=== PATIENT | female | born 2000 | race Caucasian/White ===

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

== ENCOUNTER 2022-12-09 12:22 | Emergency (ER) | payer MEDICAID, SELFPAY ==
[2022-12-09 14:03] VITALS: BP 134/63; PULSE 81; RESP 14; TEMP 36.4; O2SAT 99; BMI 21.7
[2022-12-09 14:40] LABS: MANUAL DIFF FLAG NO
[2022-12-09 14:42] LABS: Basophils Percent Auto 0.4 % (0-2); Eosinophils Absolute Auto 0.1 X10*3/uL (0.0-0.4); Eosinophils Percent Auto 0.8 % (0-4); Hemoglobin 11.6 g/dl (12.0-16.0); Imm Gran Abs Auto 0.03 X10*3/uL (0.00-0.03); Imm Gran Pct Auto 0.4 % (0.0-0.4); Lymphocytes Absolute Auto 1.5 X10*3/uL (1.2-4.9); Lymphocytes Percent Auto 20.3 % (20-40); Mean Corpuscular HGB Conc 34.1 g/dl (31.0-35.0); Mean Corpuscular Hemoglobin 30.6 pg (27.0-33.0); Mean Corpuscular Volume 89.7 fL (80.0-98.0); Mean Platelet Volume 9.1 fL (9.4-12.3); Monocytes Absolute Auto 0.7 X10*3/uL (0.1-1.2); Monocytes Percent Auto 9.7 % (2-11); Neutrophils Absolute Auto 4.9 x10*3/uL (2.0-8.3); Neutrophils Percent Auto 68.4 % (45-73); Platelet Count 222 X10*3/uL (160-400); Red Blood Count 3.79 X10*6/uL (4.20-5.50); Red Cell Distribution Width 11.8 % (11.0-16.0); White Blood Count 7.2 X10*3/uL (4.8-10.8)
[2022-12-09 14:43] LABS: Appearance Urine Clear; Color Urine Yellow; Glucose Urine UA Negative (Negative); Leukocyte Esterase Urine Negative (Negative); Nitrite Urine Negative (Negative); PH 7.5 (5.0-9.0); UMIC TRIGGER UACC YES; Urine Blood Moderate (2+) (Negative); Urine Ketones Negative (Negative); Urine Protein Negative (Neg-Trace)
[2022-12-09 14:57] LABS: Anion Gap 11 (12-20); Blood Urea Nitrogen 6 mg/dL (9-16); Calcium 8.8 mg/dL (8.4-10.2); Carbon Dioxide 23 mmol/L (22-29); Chloride 110 mmol/L (96-108); Creatinine Clr Calc Pharmacy 129.2; Estimated Glomerular Filt Rate > 60; Glucose Random 94 mg/dL (60-115); Potassium 4.1 mmol/L (3.3-5.1); Sodium 140 mmol/L (135-145)
[2022-12-09 14:58] LABS: Bacteria Urine None Seen (None Seen); Hyaline Casts Urine 0-2 /LPF (0-2); RBC Urine 0-2 /HPF (0-2); Squamous Epithelial Cell Urine 0-2 /HPF (0-2); WBC Urine 0-5 /HPF (0-5)
--- NOTE | 2022-12-09 17:00 | ED_ITS ---
HPI - Female Genitourinary General Chief complaint: Vaginal Bleeding Stated complaint: Abd pain Time Seen by Provider: 12/09/22 17:00 Source: patient Mode of arrival: ambulatory Limitations: no limitations History of Present Illness HPI Narrative: 22 yo female presents to the ER for evaluation of irregular vaginal bleeding since June and intermittent rectal bleeding associated with constipation. 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 She started OCPs 2 weeks ago. She reports using 2 super plus tampons per day. She has intermittent suprapubic cramping associated with the bleeding. She also had right sided abdominal cramping and constipation. She has been taking lactulose. She has some blood on the toilet paper when she wipes. No chest pain, SOB, dizziness, fever, chills, urinary symptoms. MD elicited complaint: vaginal bleeding Onset (ago): month(s) Location of symptoms: vaginal Severity: severe Female Urogenital Radiation: Non-Radiating Quality of pain: sharp Consistency: intermittent Vaginal discharge: none Vaginal bleeding: heavy Exacerbating factors: none Relieving factors: none Associated symptoms: abdominal pain Treatment prior to arrival: none Sexual activity: Yes Patient : No Related Data Previous Rx's Medication Instructions Recorded ibuprofen 400 mg tablet 400 mg PO Q6H PRN pain #20 tabs 09/29/20 omeprazole 20 mg capsule,delayed 20 mg PO DAILY #14 caps 11/12/20 release fluconazole 150 mg tablet 150 mg PO DAILY #1 tab 12/15/20 (Diflucan) metronidazole 500 mg tablet 500 mg PO BID #14 tabs 12/15/20 nitrofurantoin 100 mg PO Q12H 5 days #10 caps 01/05/21 monohydrate/macrocrystals 100 mg capsule (Macrobid) sulfacetamide sodium 10 % eye drops 2 drp ophthalmic-Right Q3H 5 days 01/15/21 #15 mL albuterol sulfate 90 mcg/actuation 2 puff inhalation Q4-6H PRN 07/06/21 aerosol inhaler shortness of breath or wheezing #6.7 grams ondansetron HCl 4 mg tablet 4 mg PO Q8H PRN nausea and 07/06/21 (Zofran) vomiting #9 tabs amoxicillin 875 mg-potassium 1 tab PO Q12H 10 days #20 tabs 07/09/21 clavulanate 125 mg tablet (Augmentin) ondansetron HCl 4 mg tablet 4 mg PO Q8H PRN nausea and 09/12/21 (Zofran) vomiting #10 tabs ibuprofen 400 mg tablet 400 mg PO Q8H PRN pain #20 tabs 09/21/21 azithromycin 250 mg tablet See Rx Instructions PO .COMPLEX #6 09/27/21 tabs ibuprofen 600 mg tablet 600 mg PO Q8H PRN pain #30 tabs 10/05/21 docusate sodium 100 mg capsule 100 mg PO BID #30 caps 12/09/22 (Colace) polyethylene glycol 3350 17 17 g PO DAILY #119 grams 12/09/22 gram/dose oral powder (Miralax) Allergies Allergy/AdvReac Type Severity Reaction Status Date / Time No Known Allergies Allergy Verified 10/29/21 09:43 [No Known Allergies*] Review of Systems Review of Systems: Yes all other systems are reviewed and are negative [facility] Past Medical History Medical History Asthma COVID-19 Social History Social History (Updated 10/29/21 @ 09:50 by Nick Fournier) Alcohol intake: never Patient Tobacco Use Status: Never used Tobacco Advance Directives: No Advance Directives Information Provided: No Current occupational status: employed 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 Oriented X3. No acute distress. Eyes: Pupils equal, round and reactive to light. ENT: Pharynx normal. Neck: Normal inspection. Neck supple. CVS: Normal heart rate and rhythm. Pulses normal. Respiratory: No respiratory distress. Breath sounds normal. Abdomen: Soft and nontender. +BS x4 Pelvic: normal external genitalia. Moderate amount of dark blood in the vaginal vault, no active bleeding from the cervical os. no cervical or vaginal lesions. Skin: Skin warm and dry. Normal skin color. Normal skin turgor. No rashes. Extremities: No lower extremity edema. Neuro: Oriented X 3. No motor deficit. No sensory deficit. Course Course Course Narrative: 22 yo female presenting with irregular vaginal bleeding since June 2022 along with intermittent rectal bleeding assocaited with constipation. Labs show stable normocytic anemia. No active bleeding on exam. She reports history of an unremarkable pelvic U/S in the past. Rectal bleeding most likely associated with hemorrhoids, none palpated on exam. At this time she is stable for d/c home with bowel regimen and ongoing outpatient [facility] follow up. patient will continue OCPs. all questions were answered. Medical Decision Making Differential Diagnosis Differential Diagnoses: The differential diagnosis associated with the presentation includes dysfunctional uterine bleeding, menorrhagia, menometrorrhagia, hemorrhoids, diverticulosis, constipation, less likely ovarian torsion, TOA, ectopic , PID Lab Data MDM Lab Attestation statement: I reviewed the patient's lab results. Stable normocytic anemia, normal platelets 12/09/22 14:36 12/09/22 14:37 Labs: Lab Results 12/09/22 12/09/22 12/09/22 Range/Units 14:33 14:33 14:36 WBC 7.2 (4.8-10.8) X10*3/uL RBC 3.79 L (4.20-5.50) X10*6/uL Hgb 11.6 L (12.0-16.0) g/dl Hct 34.0 L (37.0-47.0) % MCV 89.7 (80.0-98.0) fL MCH 30.6 (27.0-33.0) pg MCHC 34.1 (31.0-35.0) g/dl RDW 11.8 (11.0-16.0) % Plt Count 222 (160-400) X10*3/uL MPV 9.1 L (9.4-12.3) fL Immature Gran % (Auto) 0.4 (0.0-0.4) % Neut % (Auto) 68.4 (45-73) % Lymph % (Auto) 20.3 (20-40) % [place] % (Auto) 9.7 (2-11) % Eos % (Auto) 0.8 (0-4) % Baso % (Auto) 0.4 (0-2) % Lymph # (Auto) 1.5 (1.2-4.9) X10*3/uL [place] # (Auto) 0.7 (0.1-1.2) X10*3/uL Eos # (Auto) 0.1 (0.0-0.4) X10*3/uL Baso # (Auto) 0.0 (0.0-0.2) X10*3/uL Abs Immat Gran (auto) 0.03 (0.00-0.03) X10*3/uL Absolute Neuts (auto) 4.9 (2.0-8.3) x10*3/uL Absolute Nucleated RBC 0.000 (0.0-0.012) X10*3/uL Nucleated RBC % (auto) 0.0 (0.0-0.2) /100WBC Sodium (135-145) mmol/L Potassium (3.3-5.1) mmol/L Chloride (96-108) mmol/L Carbon Dioxide (22-29) mmol/L Anion Gap (12-20) BUN (9-16) mg/dL Creatinine (0.5-1.4) mg/dL Estim Creat Clear Calc Estimated GFR Random Glucose (60-115) mg/dL Calcium (8.4-10.2) mg/dL Urine Color Yellow Urine Appearance Clear Urine pH 7.5 (5.0-9.0) Ur Specific [place] 1.010 (1.005-1.025) Urine Protein Negative (Neg-Trace) mg/dL Urine Glucose (UA) Negative (Negative) mg/dL Urine Ketones Negative (Negative) mg/dL Urine Blood Moderate (2+) H (Negative) Urine Nitrite Negative (Negative) Ur Leukocyte Esterase Negative (Negative) Urine RBC 0-2 (0-2) /HPF Urine WBC 0-5 (0-5) /HPF Ur Squamous Epith Cells 0-2 (0-2) /HPF Urine Bacteria None Seen (None Seen) Hyaline Casts 0-2 (0-2) /LPF Urine Test NEGATIVE (NEGATIVE) 12/09/22 Range/Units 14:37 WBC (4.8-10.8) X10*3/uL RBC (4.20-5.50) X10*6/uL Hgb (12.0-16.0) g/dl Hct (37.0-47.0) % MCV (80.0-98.0) fL MCH (27.0-33.0) pg MCHC (31.0-35.0) g/dl RDW (11.0-16.0) % Plt Count (160-400) X10*3/uL MPV (9.4-12.3) fL Immature Gran % (Auto) (0.0-0.4) % Neut % (Auto) (45-73) % Lymph % (Auto) (20-40) % [place] % (Auto) (2-11) % Eos % (Auto) (0-4) % Baso % (Auto) (0-2) % Lymph # (Auto) (1.2-4.9) X10*3/uL [place] # (Auto) (0.1-1.2) X10*3/uL Eos # (Auto) (0.0-0.4) X10*3/uL Baso # (Auto) (0.0-0.2) X10*3/uL Abs Immat Gran (auto) (0.00-0.03) X10*3/uL Absolute Neuts (auto) (2.0-8.3) x10*3/uL Absolute Nucleated RBC (0.0-0.012) X10*3/uL Nucleated RBC % (auto) (0.0-0.2) /100WBC Sodium 140 (135-145) mmol/L Potassium 4.1 (3.3-5.1) mmol/L Chloride 110 H (96-108) mmol/L Carbon Dioxide 23 (22-29) mmol/L Anion Gap 11 L (12-20) BUN 6 L (9-16) mg/dL Creatinine 0.65 (0.5-1.4) mg/dL Estim Creat Clear Calc 129.2 Estimated GFR > 60 Random Glucose 94 (60-115) mg/dL Calcium 8.8 (8.4-10.2) mg/dL Urine Color Urine Appearance Urine pH (5.0-9.0) Ur Specific [place] (1.005-1.025) Urine Protein (Neg-Trace) mg/dL Urine Glucose (UA) (Negative) mg/dL Urine Ketones (Negative) mg/dL Urine Blood (Negative) Urine Nitrite (Negative) Ur Leukocyte Esterase (Negative) Urine RBC (0-2) /HPF Urine WBC (0-5) /HPF Ur Squamous Epith Cells (0-2) /HPF Urine Bacteria (None Seen) Hyaline Casts (0-2) /LPF Urine Test (NEGATIVE) External Record Review External record reviewed: Outpatient record, Prior outpatient labs and Prior outpatient radiology Tests considered The following testing was considered but not selected: Pelvic ultrasound considered, not performed, no evidence ovarian torsion, kishore gent need to get done in the emergency department today. History of a pelvic ultrasound done in the past. Critical Care Time Critical Care Time Critical Care Time: No Discharge Plan Discharge Clinical Impression: Dysfunctional uterine bleeding, Constipation Patient Disposition: Home, Self-Care Instructions: Dysfunctional Uterine Bleeding (ED), Constipation (ED) Additional Instructions: Your labs showed stable blood counts. Your urine test was negative for infection and . Recommend starting the prescribed laxative and stool softner medication. Recommend continuing your control pills. Follow up with your speedometer mechanic Rest, drink plenty of fluids. If you develop new or worsening symptoms call 911 or come back to the ER for further evaluation. Prescriptions: New polyethylene glycol 3350 [Miralax] 17 gram/dose powder 17 g PO DAILY Qty: 119 0RF docusate sodium [Colace] 100 mg capsule 100 mg PO BID Qty: 30 0RF No Action metronidazole 500 mg tablet 500 mg PO BID Qty: 14 0RF fluconazole [Diflucan] 150 mg tablet 150 mg PO DAILY Qty: 1 0RF Rx Instructions: Take this in 72 hours from 1st dose received in the ER sulfacetamide sodium 10 % drops 2 drp ophthalmic-Right Q3H 5 Days Qty: 15 0RF ondansetron HCl [Zofran] 4 mg tablet 4 mg PO Q8H PRN (Reason: nausea and vomiting) Qty: 9 0RF albuterol sulfate 90 mcg/actuation HFA aerosol inhaler 2 puff inhalation Q4-6H PRN (Reason: shortness of breath or wheezing) Qty: 6.7 1RF amoxicillin-pot clavulanate [Augmentin] 875-125 mg tablet 1 tab PO Q12H 10 Days Qty: 20 0RF ibuprofen 400 mg tablet 400 mg PO Q6H PRN (Reason: pain) Qty: 20 0RF omeprazole 20 mg capsule,delayed release(DR/EC) 20 mg PO DAILY Qty: 14 0RF nitrofurantoin monohyd/m-cryst [Macrobid] 100 mg capsule 100 mg PO Q12H 5 Days Qty: 10 0RF Rx Instructions: must administer with a meal/food ondansetron HCl [Zofran] 4 mg tablet 4 mg PO Q8H PRN (Reason: nausea and vomiting) Qty: 10 0RF ibuprofen 600 mg tablet 600 mg PO Q8H PRN (Reason: pain) Qty: 30 0RF ibuprofen 400 mg tablet 400 mg PO Q8H PRN (Reason: pain) Qty: 20 0RF azithromycin 250 mg tablet See Rx Instructions .ROUTE .COMPLEX Qty: 6 0RF Rx Instructions: For 250 mg dose pack: take 500 mg today (day 1), then 250 mg for 4 days (days 2-5) Stand Alone Forms: Work/School Release Interventions: ED Discharge Assessment Last Done: 12/09/22 18:13 Discharge Date/Time: 12/09/22 18:13
[2022-12-09 17:46] LABS: UPreg QC Valid YES; Urine Pregnancy NEGATIVE (NEGATIVE)
== END 2022-12-09 18:13 | disposition home or self-care (01) ==
PROVIDERS: Physician Assistant; Emergency Provider Emergency Medicine Emergency Medical Services
DX: N93.8 Other specified abnormal uterine and vaginal bleeding (principal); K59.00 Constipation, unspecified
CPT/HCPCS: 36415; 80048; 81001; 81025; 85025; 99282; 99283

== ENCOUNTER 2023-04-10 21:45 | Emergency (ER) | payer OTHER, SELFPAY ==
--- NOTE | ~2023-04-10 | XR_ITS ---
EXAMINATION: XR ABDOMEN KUB CLINICAL INDICATION: Constipation COMPARISON: 06/11/2021 TECHNIQUE: AP view of the abdomen. FINDINGS: Bowel gas pattern is nonobstructive. Moderate volume of stool is noted. No suspicious calcifications are seen. Included lung bases are well-aerated. No acute osseous findings are seen. XR/XR KUB IMPRESSION: Moderate volume of stool. Nonobstructive bowel gas pattern.
[2023-04-10 22:13] VITALS: BP 110/65; PULSE 65; RESP 16; TEMP 36.9; O2SAT 100; BMI 20.7
[2023-04-11 00:20] VITALS: BP 116/69; PULSE 99; RESP 16; TEMP 36.9; O2SAT 99
--- NOTE | 2023-04-11 01:09 | ED_ITS ---
HPI - Abdominal Pain General Chief Complaint: Abdominal Pain Stated Complaint: constipated, bleeding now Time Seen by Provider: 04/11/23 00:33 Source: patient Mode of arrival: ambulatory Limitations: no limitations History of Present Illness HPI narrative: 22-year-old female presents with constipation. Symptoms started 2-3 weeks ago. She has been taking MiraLax and Colace without relief. She is passing flatus. She has passed small amount of flu. She has mild abdominal pain. There is no clear relieving or exacerbating features. She has had some nausea but no vomiting. Related Data Previous Rx's Medication Instructions Recorded ibuprofen 400 mg tablet 400 mg PO Q6H PRN pain #20 tabs 09/29/20 omeprazole 20 mg capsule,delayed 20 mg PO DAILY #14 caps 11/12/20 release fluconazole 150 mg tablet 150 mg PO DAILY #1 tab 12/15/20 (Diflucan) metronidazole 500 mg tablet 500 mg PO BID #14 tabs 12/15/20 nitrofurantoin 100 mg PO Q12H 5 days #10 caps 01/05/21 monohydrate/macrocrystals 100 mg capsule (Macrobid) sulfacetamide sodium 10 % eye drops 2 drp ophthalmic-Right Q3H 5 days 01/15/21 #15 mL albuterol sulfate 90 mcg/actuation 2 puff inhalation Q4-6H PRN 07/06/21 aerosol inhaler shortness of breath or wheezing #6.7 grams ondansetron HCl 4 mg tablet 4 mg PO Q8H PRN nausea and 07/06/21 (Zofran) vomiting #9 tabs amoxicillin 875 mg-potassium 1 tab PO Q12H 10 days #20 tabs 07/09/21 clavulanate 125 mg tablet (Augmentin) ondansetron HCl 4 mg tablet 4 mg PO Q8H PRN nausea and 09/12/21 (Zofran) vomiting #10 tabs ibuprofen 400 mg tablet 400 mg PO Q8H PRN pain #20 tabs 09/21/21 azithromycin 250 mg tablet See Rx Instructions PO .COMPLEX #6 09/27/21 tabs ibuprofen 600 mg tablet 600 mg PO Q8H PRN pain #30 tabs 10/05/21 docusate sodium 100 mg capsule 100 mg PO BID #30 caps 12/09/22 (Colace) polyethylene glycol 3350 17 17 g PO DAILY #119 grams 12/09/22 gram/dose oral powder (Miralax) glycerin (adult) 1 supp OK DAILY PRN constipation 04/11/23 #12 ea magnesium citrate 150 ml PO BID PRN constipation 04/11/23 #900 mL Allergies Allergy/AdvReac Type Severity Reaction Status Date / Time No Known Allergies Allergy Verified 10/29/21 09:43 [No Known Allergies*] Review of Systems Review of Systems CONSTITUTIONAL: Denies weight loss, fever and chills. HEENT: Denies changes in vision and hearing. RESPIRATORY: Denies SOB and cough. CV: Denies palpitations no CP. GI: Positive abdominal pain, nausea, negative vomiting and diarrhea. : Denies dysuria and urinary frequency. MSK: Denies myalgia and joint pain. SKIN: Denies rash and pruritus. NEUROLOGICAL: Denies headache and syncope. PSYCHIATRIC: Denies recent changes in mood. Denies anxiety and depression. 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 Exam ED Vital Signs: Vital Signs - 24 hr 04/10/23 22:13 04/11/23 00:20 Temperature 98.4 F 98.5 F Pulse Rate 65 99 Respiratory Rate 16 16 Blood Pressure 110/65 116/69 Pulse Oximetry 100 99 Oxygen Delivery Method Room Air Room Air BMI result Body Mass Index 20.7 GEN: Well developed, no acute distress, alert, oriented HEENT: Normocephalic, atraumatic, normal external ears, nose appears normal, no oropharyngeal edema or exudates Eyes: Normal to appearance Neck: Supple, no lymphadenopathy Respiratory: Talks in complete sentences, no respiratory distress, clear to auscultation bilaterally Cardiovascular: Regular rate and rhythm, no murmurs rubs or gallops Abdomen: Soft, nontender, nondistended, no guarding, no rebound Back: No CVA tenderness Extremities: No clubbing cyanosis or edema Neurologic: No focal neurologic deficits, cranial nerves 2-12 intact, strength is 5/5 bilaterally Skin: No rash Course Course Course Narrative: Patient presents constipation for 2-3 weeks. Will obtain an x-ray to rule out air-fluid levels. Assuming this is unremarkable, will recommended a significant regimen for constipation. Reevaluation(s) Reevaluation #1: Discussed results with patient. We discussed an aggressive regimen for constipation. Patient return as needed. Medical Decision Making Medical Decision Making [facility] Narrative: 22-year-old female presents with constipation. Exam was benign. There is no rebound or guarding on exam. Will order x-ray to rule out obstructive sy mptomatology. Patient denies substance abuse. Differential Diagnosis Differential Diagnoses: The differential diagnosis associated with the presentation includes (Constipation, slow transit, small-bowel obstruction, ileus) Lab Data Labs: Lab Results 04/11/23 Range/Units 01:30 Urine Test NEGATIVE (NEGATIVE) Independent Interpretation I performed an independent interpretation of an: Plain X-Ray (Nonspecific bowel gas pattern, no evidence of small-bowel obstruction or ileus) Discharge Plan Discharge Clinical Impression: Constipation Patient Disposition: Home, Self-Care Instructions: Constipation (ED) Additional Instructions: For constipation I am recommending the following aggressive regimen: Continue MiraLax/polyethylene glycol Continue docusate sodium twice daily Magnesium citrate 150 mL 1-2 times daily until passing appropriate amounts of stool [id number] fiber supplementation with 2 L of water daily Glycerin suppositories 1-2 times daily until passing appropriate levels of stool Prescriptions: New magnesium citrate Solution 150 ml PO BID PRN (Reason: constipation) Qty: 900 0RF glycerin (adult) Suppository 1 supp OK DAILY PRN (Reason: constipation) Qty: 12 0RF No Action metronidazole 500 mg tablet 500 mg PO BID Qty: 14 0RF fluconazole [Diflucan] 150 mg tablet 150 mg PO DAILY Qty: 1 0RF Rx Instructions: Take this in 72 hours from 1st dose received in the ER sulfacetamide sodium 10 % drops 2 drp ophthalmic-Right Q3H 5 Days Qty: 15 0RF ondansetron HCl [Zofran] 4 mg tablet 4 mg PO Q8H PRN (Reason: nausea and vomiting) Qty: 9 0RF albuterol sulfate 90 mcg/actuation HFA aerosol inhaler 2 puff inhalation Q4-6H PRN (Reason: shortness of breath or wheezing) Qty: 6.7 1RF amoxicillin-pot clavulanate [Augmentin] 875-125 mg tablet 1 tab PO Q12H 10 Days Qty: 20 0RF ibuprofen 400 mg tablet 400 mg PO Q6H PRN (Reason: pain) Qty: 20 0RF omeprazole 20 mg capsule,delayed release(DR/EC) 20 mg PO DAILY Qty: 14 0RF nitrofurantoin monohyd/m-cryst [Macrobid] 100 mg capsule 100 mg PO Q12H 5 Days Qty: 10 0RF Rx Instructions: must administer with a meal/food ondansetron HCl [Zofran] 4 mg tablet 4 mg PO Q8H PRN (Reason: nausea and vomiting) Qty: 10 0RF ibuprofen 600 mg tablet 600 mg PO Q8H PRN (Reason: pain) Qty: 30 0RF polyethylene glycol 3350 [Miralax] 17 gram/dose powder 17 g PO DAILY Qty: 119 0RF docusate sodium [Colace] 100 mg capsule 100 mg PO BID Qty: 30 0RF ibuprofen 400 mg tablet 400 mg PO Q8H PRN (Reason: pain) Qty: 20 0RF azithromycin 250 mg tablet See Rx Instructions .ROUTE .COMPLEX Qty: 6 0RF Rx Instructions: For 250 mg dose pack: take 500 mg today (day 1), then 250 mg for 4 days (days 2-5) [facility]errals: [facility] [Provider Group]
[2023-04-11 01:38] LABS: UPreg QC Valid YES; Urine Pregnancy NEGATIVE (NEGATIVE)
== END 2023-04-11 02:41 | disposition home or self-care (01) ==
PROVIDERS: Emergency Provider Emergency Medicine
DX: K59.00 Constipation, unspecified (principal); R10.9 Unspecified abdominal pain
CPT/HCPCS: 74018; 81025; 99283